=== PATIENT | female | born 1955 | race Asian ===

== ENCOUNTER 2016-06-23 17:06 | Emergency (ER) | payer MEDICAID ==
[~2016-06-23] VITALS: Ht 157.5 cm; Wt 63.0 kg
[2016-06-23 20:21] VITALS: BP 127/73
== END 2016-06-23 21:33 | disposition home or self-care (01) ==
LOC: ER 17:13
DX: I82.401 Acute embolism and thrombosis of unspecified deep veins of right lower extremity (principal)
CPT/HCPCS: 73562; 93971